=== PATIENT | female | born 1940 | race Caucasian/White ===

== ENCOUNTER → 2017-08-09 10:22 | Outpatient (CLI) | payer MEDICARE ==
[2013-06-17 05:33] VITALS: BMI 28.3
[~2017-08-09 10:22] MED LIST: ASPIRIN 81 MG E81 MG PO; CARTIA XT300 MG PO; COUMADIN5 MG PO; FISH OIL 1,0001 CA1 PO; LANOXIN125 MCG PO; MULTI-DAY VITAM1 TAB PO; NIACIN PO; NIASPAN500 MG PO
== END | disposition home or self-care (01) ==
LOC: D.CT 10:22
DX: D45 Polycythemia vera (principal)

== ENCOUNTER 2017-11-18 09:43 | Emergency (ER) | payer MEDICARE ==
[2013-06-17 05:33] VITALS: BMI 28.3
[2017-11-18 10:11] LABS: BASOPHILS 0.4 % (0-2); IMMATURE GRANULOCYTES 0.4 % (0-5); LYMPHOCYTES 22.9 % (15-50); MCH 34.4 pg (26.0-34.0); MCHC 33.9 g/dL (31.0-37.0); MCV 101.4 fL (80.0-100.0); MEAN PLATELET VOLUME 9.9 fL (7.4-10.4); MONOCYTES 11.1 % (2-11); NEUTROPHILS 64.2 % (40-80); PLATELET COUNT 160 10x3/uL (130-400); RBC 5.52 10x6/uL (4.00-5.40); RDW 13.9 % (11.5-14.5); WBC 10.1 10x3/uL (4.8-10.8)
[2017-11-18 10:19] LABS: INR 2.24 (0.85-1.17); PROTIME 24.1 SECONDS (11.6-15.0)
[2017-11-18 10:24] LABS: ALBUMIN 3.3 g/dL (3.4-5.0); ANION GAP 12.6 mmol/L (8-16); BILIRUBIN - TOTAL 0.68 mg/dL (0.2-1.3); CALCIUM 8.8 mg/dL (8.5-10.1); POTASSIUM - SERUM 4.6 mmol/L (3.5-5.1); PROTEIN - SERUM 7.3 g/dL (6.4-8.2)
[2017-11-18 11:00] LABS: CREATINE KINASE 61 UL (21-215)
[2017-11-18 11:02] LABS: TROPONIN-I < 0.017 ng/mL (0.000-0.060)
== END 2017-11-18 12:15 | disposition home or self-care (01) ==
LOC: D.ER 09:43
PROVIDERS: Emergency Medicine
DX: S76.912A Strain of unspecified muscles, fascia and tendons at thigh level, left thigh, initial encounter (principal); X58.XXXA Exposure to other specified factors, initial encounter; Y93.89 Activity, other specified; Y92.019 Unspecified place in single-family (private) house as the place of occurrence of the external cause; I48.91 Unspecified atrial fibrillation; I10 Essential (primary) hypertension; D45 Polycythemia vera; F17.200 Nicotine dependence, unspecified, uncomplicated

== ENCOUNTER 2018-05-28 12:51 | Emergency (ER) | payer MEDICARE ==
[~2018-05-28] VITALS: Ht 167.6 cm; Wt 80.0 kg
[2018-05-28 13:06] VITALS: Ht 167.6 cm; Wt 80.0 kg
[2018-05-28 13:20] LABS: BASOPHILS 0.4 % (0-2); EOSINOPHILS 0.5 % (0-7); HEMATOCRIT 50.7 % (36.0-48.0); IMMATURE GRANULOCYTES 0.4 % (0-5); LYMPHOCYTES 37.7 % (15-50); MCH 33.1 pg (26.0-34.0); MCHC 33.5 g/dL (31.0-37.0); MCV 98.8 fL (80.0-100.0); MEAN PLATELET VOLUME 10.4 fL (7.4-10.4); MONOCYTES 10.8 % (2-11); NEUTROPHILS 50.2 % (40-80); RBC 5.13 10x6/uL (4.00-5.40); RDW 13.4 % (11.5-14.5); WBC 11.4 10x3/uL (4.8-10.8)
[2018-05-28 13:25] LABS: PLATELET COUNT 195 10x3/uL (130-400)
[2018-05-28 13:36] LABS: APTT 36.3 SECONDS (22.8-39.4); INR 2.32 (0.85-1.17); PROTIME 24.9 SECONDS (11.6-15.0)
[2018-05-28 13:41] LABS: ALBUMIN 3.3 g/dL (3.4-5.0); ALKALINE PHOSPHATASE 87 U/L (46-116); ALT (SGPT) 21 U/L (10-68); BILIRUBIN - TOTAL 0.38 mg/dL (0.2-1.3); CALC OSMOLALITY 274 mosm/kg (275-300); CALCIUM 9.2 mg/dL (8.5-10.1); CARBON DIOXIDE 25.5 mmol/L (21.0-32.0); CHLORIDE - SERUM 99 mmol/L (98-107); GLUCOSE 126 mg/dL (74-106); POTASSIUM - SERUM 4.1 mmol/L (3.5-5.1); PROTEIN - SERUM 7.1 g/dL (6.4-8.2); SODIUM 136 mmol/L (136-145); UREA NITROGEN 16 mg/dL (7-18); eGFR NON AFRICAN AMERICAN 57 mL/min (90-120)
[2018-05-28 13:53] LABS: CKMB 1.1 U/L (0.0-3.6); CREATINE KINASE 53 UL (21-215); THYROID STIMULATING HORMONE 5.64 uIU/mL (0.36-3.74)
[2018-05-28 13:57] LABS: TROPONIN-I < 0.017 ng/mL (0.000-0.060)
[2018-05-28 16:58] VITALS: BP 108/63
== END 2018-05-28 17:00 | disposition home or self-care (01) ==
LOC: D.ER 12:51
PROVIDERS: Family Medicine
DX: G81.94 Hemiplegia, unspecified affecting left nondominant side (principal); I48.91 Unspecified atrial fibrillation; Z79.01 Long term (current) use of anticoagulants; Z86.73 Personal history of transient ischemic attack (TIA), and cerebral infarction without residual deficits; I25.10 Atherosclerotic heart disease of native coronary artery without angina pectoris; I10 Essential (primary) hypertension

== ENCOUNTER → 2018-08-06 15:11 | Outpatient (CLI) | payer MEDICARE ==
[2018-05-28 13:06] VITALS: BMI 28.4
== END | disposition home or self-care (01) ==
LOC: D.MRI 15:11
DX: R42 Dizziness and giddiness (principal)

== ENCOUNTER 2018-08-17 19:05 | Emergency (ER) | payer MEDICARE ==
[~2018-08-17] VITALS: Ht 167.6 cm; Wt 81.8 kg
[2018-08-17 19:06] VITALS: Ht 167.6 cm; Wt 81.8 kg
[2018-08-17 19:56] LABS: BASOPHILS 0.1 % (0-2); EOSINOPHILS 0 % (0-7); HEMOGLOBIN 17.4 g/dL (12-16); IMMATURE GRANULOCYTES 0.9 % (0-5); LYMPHOCYTES 3.5 % (15-50); MCH 31.1 pg (26.0-34.0); MCHC 32.2 g/dL (31.0-37.0); MCV 96.6 fL (80.0-100.0); MEAN PLATELET VOLUME 9.9 fL (7.4-10.4); MONOCYTES 6.4 % (2-11); NEUTROPHILS 89.1 % (40-80); PLATELET COUNT 174 10x3/uL (130-400); RBC 5.59 10x6/uL (4.00-5.40); RDW 14.5 % (11.5-14.5); WBC 20.4 10x3/uL (4.8-10.8)
[2018-08-17 20:02] LABS: ALBUMIN 3.2 g/dL (3.4-5.0); ALKALINE PHOSPHATASE 100 U/L (46-116); ALT (SGPT) 50 U/L (10-68); BILIRUBIN - TOTAL 0.32 mg/dL (0.2-1.3); CALC OSMOLALITY 280 mosm/kg (275-300); CALCIUM 8.8 mg/dL (8.5-10.1); CHLORIDE - SERUM 97 mmol/L (98-107); CREATININE - SERUM 2.3 mg/dL (0.6-1.3); POTASSIUM - SERUM 4.8 mmol/L (3.5-5.1); PROTEIN - SERUM 7.2 g/dL (6.4-8.2); SODIUM 136 mmol/L (136-145); UREA NITROGEN 22 mg/dL (7-18); eGFR NON AFRICAN AMERICAN 22 mL/min (90-120)
[2018-08-17 20:03] LABS: GLUCOSE 209 mg/dL (74-106)
[2018-08-17 20:22] LABS: APPEARANCE CLEAR (CLEAR); BILIRUBIN NEGATIVE (NEGATIVE); COLOR YELLOW (YELLOW); GLUCOSE NEGATIVE (NEGATIVE); KETONE NEGATIVE (NEGATIVE); NITRITE NEGATIVE (NEGATIVE); PROTEIN NEGATIVE (NEGATIVE); UROBILINOGEN NORMAL (NORMAL)
[2018-08-17 20:23] LABS: CREATINE KINASE 8418 UL (21-215); LIPASE 146 U/L (73-393); MAGNESIUM - SERUM 2.1 mg/dL (1.8-2.4); PRO BNP 803 pg/mL (0-450); THYROID STIMULATING HORMONE 1.98 uIU/mL (0.36-3.74)
[2018-08-17 20:24] LABS: RED CELLS - URINE RARE /hpf (0-5)
[2018-08-17 20:26] LABS: APTT 27.7 SECONDS (22.8-39.4)
[2018-08-17 20:27] LABS: D-DIMER-QUANTITATIVE 2.82 ug/mLFEU (0.20-0.54)
[2018-08-17 20:37] LABS: UDS - AMPHET NEGATIVE QUAL (NEGATIVE); UDS - BARB NEGATIVE QUAL (NEGATIVE); UDS - BENZO NEGATIVE QUAL (NEGATIVE); UDS - COCAINE NEGATIVE QUAL (NEGATIVE); UDS - OPIATE NEGATIVE QUAL (NEGATIVE); UDS - PCP NEGATIVE QUAL (NEGATIVE); UDS - THC NEGATIVE QUAL (NEGATIVE)
[2018-08-17 20:51] LABS: CKMB 49.4 U/L (0.0-3.6)
[2018-08-17 22:45] VITALS: BP 128/78
== END 2018-08-17 22:54 | disposition other institution (70) ==
LOC: D.ER 19:05
PROVIDERS: Family Medicine
DX: J96.90 Respiratory failure, unspecified, unspecified whether with hypoxia or hypercapnia (principal); Z86.73 Personal history of transient ischemic attack (TIA), and cerebral infarction without residual deficits; I25.10 Atherosclerotic heart disease of native coronary artery without angina pectoris